=== PATIENT | male | born 1935 | race Caucasian/White ===

== ENCOUNTER 2017-01-14 19:28 | Inpatient (IN) | payer MEDICARE, OTHER ==
[2017-01-14] VITALS (7 sets, daily range): BP systolic 112–158; BP diastolic 58–87; PULSE 101–132; RESP 16–36; O2SAT 88–94
[~2017-01-14] VITALS: Ht 180.3 cm; Wt 97.4 kg
[~2017-01-14 19:28] MED LIST: CHOL500011 PO; KEN25CR EXT; METO50TA3 PO; PANT40TA2 PO; PRED-508 PO; SYMINH INHALATION; TIMO5DRO26 BOTH_EYES; TRAV5DRO BOTH_EYES; WARF5TAB7 PO; WARF7.5T4 PO
--- NOTE | 2017-01-14 19:52 | ED.REPORT ---
HPI-Dyspnea / Wheezing Date of Service Jan 14, 2017 ED Provider: Miguel Stanford MD Pt is an 82 year old male with a hx of lung surgery x2, tachycardia, pneumonia, and resolved kidney failure, on Warfarin presenting to the ED complaining of SOB and fatigue onset today around 1200. Associated symptoms include fever, weakness. The pt's pulse ox at home was in the upper 80s, BP was elevated, temperature was about 101. Pt reports feeling okay right now. The pt's reports that symptoms began while the pt was eating lunch. He became fatigued, and went home and went straight to sleep for the afternoon. Pt is not normally on Oxygen at home, he used to be but is not anymore. Denies being on antibiotics , lower extremity swelling or dysuria. Pt was ambulatory getting to the car to come in today, but his breathing did seem worse than baseline. Recent 20lb weight gain over the last few months. Denies any recent sick contacts. Nursing Notes Stated Complaint: TROUBLE BREATHING,FEVER Chief Complaint: Respiratory Distress Nursing Notes Reviewed: Yes (Unipower Battery, meds not reconciled) Allergies: Coded Allergies: codeine (Verified Adverse Reaction, Severe, FEELS LIKE BUGS CRAWLING ALL OVER, 06/25/16) Uncoded Allergies: plastic med cups (Allergy, Intermediate, swelling lips, 06/25/16) Scheduled Budesonide/Formoterol 160-4.5 mcg Inh (Symbicort 160-4.5 mcg Inh) 120 Puff Inhaler 2 PUFF INHALATION BID Cholecalciferol (Vitamin D3) (Vitamin D3) 5,000 Unit Tablet 5,000 UNIT PO DAILY Furosemide (Furosemide) 20 Mg Tab 20 MG PO BIDWM Metoprolol Tartrate (Metoprolol Tartrate) 50 Mg Tablet 50 MG PO BID Pantoprazole DR (Protonix) 40 Mg Tablet.dr 40 MG PO QAM PredniSONE (PredniSONE) 1 Mg Tab 5 MG PO DAILYWM Timolol (Betimol) 5 Ml Drops 1 DROP BOTH_EYES DAILY Travoprost (Travatan Z) 5 Ml Drops 1 DROP BOTH_EYES HS Triamcinolone Acet (Triamcinolone Acetonide Cream) 1 Applic/0.25 Gm Cr 1 APPLIC EXT BID Apply a thin layer to affected area(s) Warfarin Sodium (Warfarin Sodium) 5 Mg Tablet 5 MG PO DIRECTED 2.5 mg on (1/2 tablet), 5 mg all other days Scheduled PRN Acetaminophen (Acetaminophen) 325 Mg Tablet 650 MG PO Q4H PRN PRN For Fever General Time Seen by MD: 19:46 Chief Complaint Shortness of breath Hx Obtained From: Patient, Spouse Arrived By: Walk-in Sudden in Onset?: Yes Onset Occurred: 5 - 8 hours ago Symptom Duration: Since onset Severity: Current: No pain currently Severity: Maximum: No pain Recent Healthcare: No recent hospitalization, Recent doctor visit Similar Sx Previous: No Past Medical History Past Medical History Notes: Stress test pharmacological 10/31/2016 was normal, with preserved LV function, overall low risk Echocardiogram 10/31/2016 for shortness of breath revealed mild concentric left ventricular hypertrophy with EF of 60-65%, grade 1 diastolic dysfunction, mild biatrial enlargement, mild aortic valve sclerosis - no pericardial effusion on that follow-up Patient hospitalized last June 2016 for pericardial effusion status post pericardial window Admitted fall 2015 at [facility] Past Medical History Asbestosis Cataracts Glaucoma Abdominal aortic aneurism s/p repair/grafting of aorta & iliac 200607 Grade 1 diastolic CHF Hypertension Hyperlipidemia Atrial fibrillation - on Coumadin Mild Valvular heart disease Hx of pneumonia Hx of asbestos exposure Hx of polymyalgia rheumatica Hx of temporal arteritis (on chronic prednisone, currently at 5 mg daily as of December 2016) Hx of Cholelithiasis Chronic kidney disease, with congenital solitary kidney CAD Acute pericardial effusion requiring pericardial window in June 2016 Past Surgical History Pericardial window for pericardial effusion July 19 CAD cath Carotid endarterectomy Appendectomy Bilateral rotator cuff repair Thoracentesis Cataract surgery Thoracotomy Family History noncontributory Smoking History Former Smoker Social History Drug Use: Denies drug use Other Social History: Good social support, , Local resident Ambulatory Status Independent Review of Systems Constitutional: Reports: Fatigue, Fever (101), Malaise Respiratory: Reports: Shortness of breath Musculoskeletal: Denies: Extremity swelling Complete sys rev & neg: except as marked. Female: Denies: Dysuria Physical Exam Initial Vital Signs Vital Signs (First) Date Time Temp Pulse Resp B/P Pulse Ox O2 Delivery O2 Flow Rate FiO2 01/14/17 19:31 37.4 128 16 158/83 88 Room Air 01/14/17 20:34 3 Initial VS: Reviewed, Vital signs abnormal (tachycardic, hypoxic) Head / Eyes: Atraumatic, Normocephalic, PERRL ENT: Mucous membranes moist, Conjunctiva normal, No scleral icterus Abdomen / GI: Soft, Non-tender Skin: Warm, Dry, No cyanosis Neurologic: Alert, Oriented, Nonfocal Psychiatric: Mood/affect normal, Behavior normal, Normal thought content General/Constitutional: Awake, Alert Appears exhausted and weak. It takes effort just to sit up in bed. Respiratory / Chest: No respiratory distress Wheezing / Retractions: Positive: Wheeze insp/exp diffuse Rales / Rhonchi: Positive: Rales diffuse Wheezes and rhonchi all lovett. Cardiovascular: Regular rhythm Heart Rate / Rhythm: Positive: Tachycardia (Profoundly) Lower Extremity / Pelvis / MS: Atraumatic Trace edema although the pt reports that they are markedly better, and are at the best they've been for some time. Interpretation & Diagnostics Lab Results Interpretation Result Diagram: 01/14/17195301/14/171953 Test 01/14/17 19:54 White Blood Count 13.4th/mm3 (3.8-10.1) Red Blood Count 4.28mil/mm3 (4.40-5.80) Hemoglobin 12.9g/dL (13.8-17.2) Hematocrit 40.3% (41.0-50.0) Mean Corpuscular Volume 94.2fL (81-100) Mean Corpuscular Hemoglobin 30.1pg (27.0-35.0) Mean Corpuscular Hemoglobin Concent 32.0% (32.0-37.0) Red Cell Distribution Width 14.8% (12.3-15.4) Platelet Count 275bil/L (150-400) Neutrophils (%) (Auto) 84.1% (40-74) Lymphocytes (%) (Auto) 5.4% (14-46) Monocytes (%) (Auto) 10.0% (4-12) Eosinophils (%) (Auto) 0.2% (0-5) Basophils (%) (Auto) 0.1% (0-3) Prothrombin Time 16.5sec (8.1-12.5) Prothromb Time International Ratio 1.53ratio Sodium Level 141mEq/L (134-144) Potassium Level 4.1mEq/L (3.5-5.2) Chloride Level 104mEq/L (97-108) Carbon Dioxide Level 21mmol/L (18-29) Blood Urea Nitrogen 24mg/dL (8-27) Creatinine 2.14mg/dL (0.76-1.27) Estimat Glomerular Filtration Rate 32mL/min (>59) Glucose Level 127mg/dL (60-99) Lactic Acid Level 1.5mmol/L (0.4-2.0) Calcium Level 8.9mg/dL (8.5-10.1) Total Bilirubin 0.4mg/dL (0.0-1.2) Aspartate Amino Transf (AST/SGOT) 15U/L (0-50) Alanine Aminotransferase (ALT/SGPT) 10U/L (0-44) Alkaline Phosphatase 63U/L (25-160) Troponin T 0.019ug/L (0.0-0.011) Pro-B-Type Natriuretic Peptide 1298pg/mL (0-486) Total Protein 6.8g/dL (6.4-8.4) Albumin 3.6g/dL (3.4-5.0) Procalcitonin 0.24ng/mL (0.00-0.08) Lab Results Interpretation: CBC positive leukocytosis CMP renal insufficiency chronic-improved from a creatinine of 4 and June 2016 Blood cultures 2 pending Troponin marginally positive, suspect demand ischemia given setting fever, respiratory infection, also chronic renal insufficiency INR subtherapeutic ECG Interpretation ECG Interpretation: Sinus tachycardia with a rate of 123. No ischemic changes. Can't exclude atrial flutter, given that previous EKG indicates hx of flutter. Time: 19:56 Interpreted by: ED physician X-Ray Chest Interpretation Chest Xray Interpretation: IMPRESSION: Overall unchanged appearance including bibasilar ill-defined patchy ground glass opacities probably scarring/atelectasis given stable appearance since 01/02/17 and to a more remote study from 09/10/16 Dictated by: Leeroy Lin M.D. on 01/14/2017 at 20:47 View: Portable, 1 view Interpretation / Wet Read by: Interpret - Radiologist Re-Eval/Medical Decision Med Decision/Clinical Course This is an 82-year-old male with a complex history that includes asbestosis, presents with fevers chills and shortness of breath and weakness. Noted today. He has a chronic cough making it difficult to tell if there is a new cough- this is from his asbestosis and he is on inhalers at baseline. 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 In generally weak, but is able to answer questions. He has decreased breath sounds, no audible bronchospasm on exam. He has trace edema in the legs In the legs which is chronic and improved from baseline according to the patient and . Patient is on chronic prednisone at 5 mg daily for history of temporal arteritis. He received albuterol Atrovent, Tylenol, fluids, and a Solu-Medrol given the history of chronic steroids bronchospasm as part of his presentation. To my ice his chest x-ray does suggest an interval development of pneumonia compared with previous, although the formal radiologist read does not appreciate an interval change. The patient has already been admitted within the past few months for an influenza positive, think unlikely to have influenza twice in a matter of months and not finding too much utility in repeating influenza test at this time. The patient is slightly subtherapeutic on his INR, it does not have pleuritic discomfort and I doubt pulmonary embolus. Infectious etiology with the fevers chills and weakness and describes seems much more likely better fits with the clinical syndrome. Patient will maintain on anticoagulation however, he is being initiated on antibiotics. He has a low level troponin elevation which I suspect is most likely due to the chronic renal insufficiency, and/or potentially some trace demand ischemia-the patient just underwent an extensive cardiac workup that was negative in the recent months. Creatinine is significantly improved from the renal failure developed in June 2016, and appears to be the baseline to this point. Case is discussed the admitting hospitalist. Source of Hx: Old records Re-Evaluation/Progress : Time of Eval: 20:02 Patient Status: Condition improved Re-Evaluation/Progress Note: Discussed medication list. Consultation : Referral / Consult Name: Jeanmarie Ha MD Consulted With: Hospitalist Call Returned at: 21:03 Cytology Manager: Will see patient, Agrees with plan, Accepts admit Differential Diagnosis: Positive: COPD exacerbation, Pneumonia, Negative: Acute coronary syndrome, Cardiogenic shock, Pulmonary embolism, Respiratory failure Counseled Regarding: Diagnosis, Lab results, Need for follow-up, When/why to return to ED Discharge & Departure Impression: Primary Impression: Pneumonia Additional Impressions: Acute exacerbation of COPD with asthma Hypoxia Subtherapeutic international normalized ratio (INR) Chronic renal insufficiency Chronic use of steroids Disposition: ADMITTED TO HOSPITAL Discharge Condition All VS Reviewed: Yes Condition: Improved Referrals: Nuno Stanton MD (PCP/Family) Stacey Attestation Portions of this note were transcribed by Leticia West. I, Dr. Stanford personally performed the history, physical exam and medical decision-making; I reviewed and confirmed the accuracy of the information in the transcribed note. Signed by: Stacey Prado, 01/14/2017 and 2103. copies to: Nuno Stanton MD, Matthew F MD Jan 14, 2017 19:52 LETICIA WEST Jan 14, 2017 20:08
[2017-01-14] MEDS ORDERED: Albuterol 2.5 mg/3 mL Inhalation Solution NEB ONE ×2 (20:04→20:05)
[2017-01-14 20:05] LABS: BASOPHILS % (AUTO) 0.1 % (0-3); EOSINOPHILS % (AUTO) 0.2 % (0-5); Mean Corpuscular Hemoglobin 30.1 pg (27.0-35.0); Mean Corpuscular Volume 94.2 fL (81-100); NEUTROPHILS % (AUTO) 84.1 % (40-74); Platelet Count 275 bil/L (150-400)
[2017-01-14] MEDS ORDERED: MethylprednisoLONE Sodium Succinate 62.5 mg/mL 2 mL Inj IVPUSH ONE (20:05)
[2017-01-14] MEDS ORDERED: Ipratropium 0.02% 0.5 mg/2.5 mL Inhalation Solution NEB ONE (20:05)
[2017-01-14 20:21] LABS: INR 1.53 ratio
[2017-01-14] MEDS ORDERED: PRD1T PO (20:29)
[2017-01-14] MEDS ORDERED: TIMO5DRO26 BOTH_EYES (20:34)
[2017-01-14] MEDS ORDERED: TIMO5DRO5 BOTH_EYES (20:34)
[2017-01-14 20:35] LABS: TROPONIN T 0.019 ug/L (0.0-0.011)
[2017-01-14] MEDS ORDERED: FUR20 PO (20:37)
[2017-01-14] MEDS ORDERED: ACET325T51 PO (20:39)
[2017-01-14] MEDS ORDERED: Azithromycin Inj 500 MG in Dextrose 5% w/Vial Mate 250 ML IV ONE (20:45)
[2017-01-14] MEDS ORDERED: cefTRIAXone Inj 2,000 MG in Dextrose 5% Minibag Plus 50 ML IV ONE (20:45)
--- NOTE | 2017-01-14 20:50 | DRSVH ---
PROCEDURE: X-RAY CHEST ONE VIEW, PORTABLE ([id number]) INDICATIONS: Shortness of breath TECHNIQUE: One view of the chest was acquired. COMPARISON: [facility], CR, XR CHEST 2VW, 09/10/2016, 13:06. [facility], CR, XR CHEST 2VW, 01/02/2017, 11:19. FINDINGS: Surgical changes and devices: Surgical clips project in the right neck Lungs and pleura: No definite pleural effusions or pneumothorax. Bibasilar ill-defined patchy and gr oundglass opacities overall unchanged since 01/02/17. No new consolidation. Mediastinum: Mediastinal contours appear normal. Heart size is normal. Bones and chest wall: No suspicious bony lesions. Overlying soft tissues appear unremarkable. IMPRESSION: Overall unchanged appearance including bibasilar ill-defined patchy ground glass opacitie s probably scarring/atelectasis given stable appearance since 01/02/17 and to a more remote study from 09/10/16 Dictated by: Leeroy Lin M.D. on 01/14/2017 at 20:47 Approved by: Leeroy Lin M.D. on 01/14/2017 at 20:49
[2017-01-14 21:32] LABS: COLOR,URINE YELLOW (YELLOW)
[2017-01-14 21:33] LABS: APPEARANCE,URINE CLEAR (CLEAR,HAZY); OCCULT BLOOD,URINE MODERATE (NEGATIVE); UROBILINOGEN,URINE NORMAL (NORMAL)
[2017-01-14] MEDS ORDERED: Polyethylene Glycol (PEG) 17 Gm Powder PO PRN (22:40)
[2017-01-14] MEDS ORDERED: Albuterol-Ipratropium 3 mL Inhalation Solution NEB PRN (23:10)
--- NOTE | 2017-01-14 23:26 | PCM.HPMED ---
Subjective Date of Service Jan 14, 2017 Primary Provider: Admitting Physician: Jeanmarie Ha MD Primary Care Physician: Nuno Stanton MD Attending Physician: Jeanmarie Ha MD Chief Complaint: Shortness of breath and fever History of Present Illness: 82-year-old male with a complicated past medical history including significant asbestos exposure with recurrent right pleural effusion status post VATS, and chronic steroids for vasculitis who presented to the ER this evening with one- day complaint of increased fatigue and loss of appetite with associated shortness of breath that became more of an issue at approximately noon today, and at least one recorded fever of 10 1F. A significant portion of the history is obtained from the patient's was present. Reports that he awoke this morning, ate a little bit of breakfast, and then went back to bed. At approximately noon they were on their way to see friends for lunch, but he reported he was not feeling well, and they went back home. His reports that he then just went back to bed and slept for most of the afternoon. He reports some shortness of breath, and they report that the O2 sats was reading a saturation in the 80s. Please note, that the patient was previously on home O2 (until about 8 months ago), but no longer. He reports that he somewhat regularly gets short of breath, and this is usually associated with increased cough and sputum production secondary to his significant asbestos exposure and complications subsequent to that. They presented to the ER due to the significant shortness of breath and hypoxia. Denies sick contacts, recent travel. He otherwise denies any other complaints at this time. Over the course of the interview was noted that his left lower leg has a greater circumference than the right lower leg, and upon questioning this was noted to be abnormal appearing into the and the patient. They cannot recall if this is a chronic issue (though they note that he does have fluid retention chronically), and are not aware of any physician telling him before that he has this asymmetry. He denies pain in the leg, and denies any significant period of time at which he was immobile over the last several weeks. Please note, patient's says that he previously had cellulitis in the left lower extremity, but I am not able to find any records confirming that. Patient and spouse report significant weight increase over the last couple of months (upon review of outpatient record it appears to be approximately 20 pounds), but he reports that it has "all gone to my belly." Review of outpatient records demonstrates report of disease stability across the board per nephrology, pulmonology, and internal medicine records. In the ER, he was tachycardic and tachypneic, but afebrile. The chest x-ray did not demonstrate significant change from previous studies (i.e. new infiltrate). He did receive nebulizer treatments with albuterol and ipratropium. He also received a one-time dose of IV Solu-Medrol (125 mg). At the time I saw him, patient was reporting that he feels back to baseline. Given his fever and shortness of breath, he received one-time doses of ceftriaxone and azithromycin in the ER. Patient is admitted under inpatient status with expected length of stay greater than 2 midnights due to severity of presenting symptoms, risk of adverse event, and complexity of treatment plan. Comprehensive review of systems conducted and was negative except for the pertinent positives listed in history of present illness above. Allergies Coded Allergies: codeine (Verified Adverse Reaction, Severe, FEELS LIKE BUGS CRAWLING ALL OVER, 06/25/16) Uncoded Allergies: plastic med cups (Allergy, Intermediate, swelling lips, 06/25/16) Home Medications Naga Aldrich. [id number] 1935 01/02/2017 10:30 AM 11/28 Betimol 0.5 % eye drops instill 1 drop by ophthalmic route 2 times every day into affected eye(s) clobetasol 0.05 % scalp solution MIX INTO TUB OF CERAVE AND APPLY TO AFFECTED AREAS twice a day for 2 wks then 2-3 times a week. Do not apply to face fluticasone 50 mcg/actuation nasal spray,suspension spray 1 spray by intranasal route every day in each nostril furosemide 20 mg tablet take 1 tablet by oral route every 2 days Jantoven 5 mg tablet take 1 tablet (5mg) daily except 1/2 tablet (2.5mg) Thurs metoprolol tartrate 50 mg tablet TAKE 1 TABLET BY MOUTH TWICE A DAY WITH MEALS FOR HEART PROAIR HFA 90 MCG INHALER INHALE 2 PUFFS BY MOUTH 4TIMES A DAY NEEDED PROTONIX DR 40 MG TABLET TAKE 1 TABLET BY ORAL ROUTE EVERY DAY ON EMPTY STOMACH FOR ACID REFLUX. 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 MARISSA Chinchilla * Membranous glomerulonephritis with associated proteinuria (history of Cytoxan which was completed in May 2016) * Chronic anion gap metabolic acidosis PMR on prednisone Giant cell arteritis on prednisone CVA/TIA 2007 Asbestosis status post right thoracostomy with talc treatment (VATS decortication in 2014) Osteoarthritis Pericardial effusion status post pericardial window Glaucoma of the left eye GERD Appendectomy Knee surgery for torn meniscus Tonsillectomy Bilateral rotator cuff surgery Family History His father committed suicide with shooting himself. His mother had kidney disease. 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 Exam Vital Signs Vital Sign - Last Date Time Temp Pulse Resp B/P Pulse Ox O2 Delivery O2 Flow Rate FiO2 01/14/17 21:47 37.2 114 30 112/87 94 Nasal Cannula 2 Exam General: Alert, Oriented X3, Cooperative, No Acute Distress Head: Normocephalic, atraumatic. External ears normal. Eyes: PERRL (please note that the left pupil is slow to react-this is the eye in which he has glaucoma), EOMI. Anicteric sclerae. Conjunctivae are not injected Mouth: Mouth Normal, Mucous Membranes Moist/[place]. Upper and lower dentures present Neck: Neck supple with full range of motion. No Thyromegaly. Please note scar from right-sided CEA. Chest & Lungs: Bibasilar rales present. There is significant upper airway sound transmission from secretions that appropriately resolves with coughing/ clearing his throat. Respiratory effort is shallow with a rate in the low 20s, but upon questioning his she notes that this is about how he usually breathes. Cardiovascular: Regular Rate/Rhythm, Normal S1, Normal S2, No Murmurs/Rubs/ Gallops. Radial pulses are 2+ bilaterally. Posterior tibials are difficult to appreciate but faint bilaterally. No carotid bruits appreciated. Abdomen: Non-tender, Non-distended, No masses, Normoactive bowel tones, Soft. Please note significant vertical surgical scar (secondary to his AAA repair). Musculoskeletal: Normal Range of Motion Extremities: Circumferential asymmetry of the lower legs (left is greater than right). There is some dependent mild pitting edema in the lower legs bilaterally, and minimal pitting edema in the bilateral feet. There is some very mild hyperpigmentation of the distal lower legs to the ankles, but no erythema, warmth, tenderness on palpation. Skin: Warm and diaphoretic. No rash appreciated. Neurological: Grossly Neurologically Intact, Cranial Nerves 2-12 Intact, Normal Speech Psych: Normal mood and affect. Thought process and content intact. Lab and Diagnostics Labs Neutrophilia with 84.1% Lactic acid is 1.5 LFTs are normal Troponin is mildly elevated 0.019 (patient does have chronic kidney disease) The proBNP is 1300 (patient does have chronic kidney disease) Pro calcitonin is 0.24 Total protein and albumin are normal INR is 1.53 (please note that it was 3.6 on 01/02/17)-patient is on warfarin UA demonstrates 300 of urine protein, 250 of urine glucose, moderate occult blood, 3-10 red blood cells, but otherwise unremarkable Result Diagram: 01/14/17195301/14/171953 Microbiology Blood cultures this admission are pending. Review of micro-history is unremarkable. X-Rays, CTs and MRIs Date of Service: 01/14/171947 PROCEDURE: X-RAY CHEST ONE VIEW, PORTABLE ([id number]) IMPRESSION: Overall unchanged appearance including bibasilar ill-defined patchy ground glass opacities probably scarring/atelectasis given stable appearance since 01/02/17 and to a more remote study from 09/10/16 Dictated by: Leeroy Lin M.D. on 01/14/2017 at 20:47 12-lead ECG Sinus tachycardia with a heart rate of 123, intervals are within normal limits, axis is normal, no ST or T-wave changes to suggest acute ischemia at this time. Cardiac Echo Impressions Echocardiogram performed 10/31/16 demonstrates an estimated EF of 60-65% with mild concentric LV hypertrophy. There is also note of grade 1 diastolic dysfunction. Otherwise no significant disease noted. Assessment & Plan 82-year-old male with a complicated past medical history including significant asbestos exposure with recurrent right pleural effusion status post VATS, and chronic steroids for vasculitis who presented to the ER this evening with one- day complaint of increased fatigue and loss of appetite with associated shortness of breath that became more of an issue at approximately noon today, and at least one recorded fever of 101F. # Shortness of breath and hypoxia with associated fever, acute. Shortness of breath present on admission -Unclear etiology at this time -Given his lower leg asymmetry and swelling, there is some concern for possible thromboembolic disease which could potentially lead to a PE * Please note, well score is 4.5 (S/S of DVT and tachycardia) * Please note subtherapeutic range INR (with recent supratherapeutic INR) -Given his fever and productive cough (history of asbestos exposure), there is additional concern for a potential community-acquired bacterial or viral pulmonary infection -Alternatively, this could be an exacerbation of his underlying chronic pulmonary disease (potential precipitants could include infection, VTE, but no definitive precipitants noted by patient) -Patient does have underlying vasculitic disease, but no other clinical indications that a vasculitic exacerbation is contributing to his presentation -No indication of cardiac ischemia etiology, or return of pleural effusion by imaging, or acute heart failure -Patient does not appear to be significantly fluid overloaded on clinical assessment to suggest that as an etiology -We will begin assessment with ultrasound duplex of the lower extremities (will hold off on CT PE study as the patient reports doing well, and his underlying chronic kidney disease * If lower extremity ultrasound duplex is positive for DVT, then we will consider CT PE study -For tonight we will empirically treat for possible community-acquired bacterial pneumonia with ceftriaxone and azithromycin. Please note, patient is on chronic prednisone (5 mg by mouth daily). * Reports that he had his flu vaccination this year, and is up-to-date with pneumococcal vaccinations. * We will check legionella and pneumococcal urine antigens * check sputum cx * As the patient has improved significantly with nebulizer treatments, we may be able to stop these antibiotics in the near future * Should the patient worsen or fail to improve, consideration for biofire PCR for respiratory etiology (potentially viral) -We will make nebulized treatments available on as-needed basis -Oxygen supplementation as needed to keep sats greater than 92% -Repeat pro calcitonin in the morning -Continue to monitor labs and vital signs closely -Stress dose steroids (will order prednisone 20 mg by mouth to be given tomorrow morning) -Daily standing weights and close monitoring of I's and O's given his report of weight gain over the last several months # Leukocytosis with left shift, acute. Present on admission -Likely secondary to possible infection, or stress reaction as noted above -Unlikely to be due to his chronic steroids as review of historical lab values does not demonstrate leukocytosis -We will continue to follow labs, but please note that he is now getting stress dose steroids # Subtherapeutic INR, acute. 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-we will continue home furosemide (please note this is dosed every other day) * Membranous glomerulonephritis with associated proteinuria * Chronic anion gap metabolic acidosis PMR-steroids as noted above Giant cell arteritis-steroids as noted above Asbestosis status post right thoracostomy with talc treatment-we will continue Symbicort Osteoarthritis-Tylenol is available as needed Glaucoma of the left eye-we will continue Travatan eyedrops GERD-we will continue PPI PRN MEDICATIONS - Acetaminophen as needed for mild pain/fever/headache - Bowel regimen as needed - Antiemetic as needed Patient is admitted under inpatient status with expected length of stay greater than 2 midnights due to severity of presenting symptoms, risk of adverse event, and complexity of treatment plan. Pain Evaluation: Adequate Pain Control GI Prophylaxis: Proton Pump Inhibitor VTE Prophylaxis: Sub-Q Heparin (Unfractionated), Other (we will continue with warfarin with goal of therapeutic INR, will have him on DVT ppx with subq Heparin until therapeutic. IPC contraindicated given concern for DVT) Resuscitation Status: DNR/DNI:Do Not Resuscitate/Intubate Attending Statement The patient was seen and examined together with Dr. Lindsey on 01/14 and I agree with the history, exam and plan as outlined in the note above. copies to: Nuno Stanton MD, Collin T DO Jan 14, 2017 22:09 Jeanmarie Ha MD Jan 14, 2017 23:56
[2017-01-15] VITALS (8 sets, daily range): BP systolic 131–181; BP diastolic 62–96; PULSE 84–98; RESP 18–24; O2SAT 93–99
[2017-01-15] MEDS ORDERED: TRAVOPROST 0.004% BOTH_EYES ONE (00:05)
[2017-01-15 02:38] LABS: BASOPHILS % (AUTO) 0.2 % (0-3); EOSINOPHILS % (AUTO) 0 % (0-5); MONOCYTES % (AUTO) 1.5 % (4-12); Mean Corpuscular Hemoglobin 29.8 pg (27.0-35.0); Mean Corpuscular Volume 96.1 fL (81-100); NEUTROPHILS % (AUTO) 95.8 % (40-74); Platelet Count 257 bil/L (150-400)
[2017-01-15 02:55] LABS: INR 1.53 ratio
[2017-01-15 03:18] LABS: Magnesium 2.1 mg/dL (1.6-2.6)
[2017-01-15] MEDS: Heparin 5,000 Unit/mL Inj SUBQ SCH ×4 (03:40→23:40)
[2017-01-15] MEDS ORDERED: 0.9% Sodium Chloride 250 ML IV ONE (04:45)
--- NOTE | 2017-01-15 04:48 | NUR ---
Admit Pt arrived to [facility] from ED via gurney. Pt was able to self transfer to bed with SBA. Pt A&Ox3 with no c/o of CP or SOB. Med rec completed in ED, Admission questions completed in room with and pt answering. Pt orient to room, call light and hospital policies. Pt on 3L NC with SpO2's in the high 90's. Pt AM lactic found to be elevated along with procalcitonin. MD notified and orders for NS 250mL bolus and NS 500mL to run at 100 mL/hr were given and started, repeat Lactic @ 0600. VSS and Tele SR 90's.
[2017-01-15] MEDS: 0.9% Sodium Chloride 500 ML IV SCH ×3 (05:30→14:21)
[2017-01-15] MEDS: Pantoprazole 40 mg ER24 Tablet PO SCH (08:14)
[2017-01-15] MEDS: predniSONE 20 mg Tablet PO SCH (08:14)
[2017-01-15] MEDS: Fluticasone-Salmeterol 500-50 Inhaler INHALATION SCH ×2 (08:14→21:18)
[2017-01-15] MEDS ORDERED: TIMO1DRO4 AFFECT_EYE (09:48)
--- NOTE | 2017-01-15 09:54 | DRSVH ---
PROCEDURE: US VENOUS LEG DUPLEX BILATERAL INDICATIONS: L lower leg is greater than R, SOB TECHNIQUE: Real-time imaging, as well as color and pulse Doppler interrogation, were performed of the deep veins of both legs from the inguinal ligament to the popliteal fossa. COMPARISON: None. FINDINGS: The deep veins are normally compressible, and free of intraluminal thrombus. Color and pu lse Doppler demonstrate normal phasic intravascular flow. There is normal augmentation response to d istal compression maneuver. IMPRESSION: No DVT found bilaterally. Note: These findings are concordant with the preliminary interpretation. Dictated by: Daniel Landis M.D. on 01/15/2017 at 9:43 Approved by: Daniel Landis M.D. on 01/15/2017 at 9:44
--- NOTE | 2017-01-15 14:47 | PCM.PHAPRO ---
Progress Shortness of breath and fever WARFARIN Dosing Indication: AFIB Home dose 5mg/d x 2.5mg on [facility] Inpt dosing: [facility] Date Jan 15Jan 16Jan 17Jan 18Jan 19Jan 20Jan 21 INR 1.53 1.53 INR change Warf Dose 7.5mg x1 a/ Subtherapeutic, likely 2/2 missed dose(s) p/ Bump dose of 7.5mg x1 today and follow Nathan Carpio S Pharm D Jan 15, 2017 14:47
--- NOTE | 2017-01-15 16:27 | PCM.PNMED ---
Subjective Date of Service Jan 15, 2017 Subjective 82-year-old man with a history of fibrotic and pleural lung disease presents with acute fever and cough. Patient states he felt remarkably better within 12 hours hospitalization. Continues to have increased cough. No further fevers. Reports appetite is somewhat reduced. Exam Vital Signs Vital Sign - Last Date Time Temp Pulse Resp B/P Pulse Ox O2 Delivery O2 Flow Rate FiO2 01/15/17 16:09 36.8 98 20 144/75 93 Room Air 01/15/17 12:02 3.00 Intake and Output 01/14/17 01/14/17 01/15/17 Cumulative From/Thru 15:00 23:00 07:00 01/14/17 19:31 - 01/15/17 05:08 Intake Total 250 ml 0 ml 250 ml Output Total 250 ml 250 ml Balance 250 ml -250 ml 0 ml Intake Oral 0 ml 0 ml IV Total 250 ml 250 ml Output Urine Total 250 ml 250 ml # Bowel Movements 0 0 Exam General: Early healthy appearing elderly man in no acute distress HEENT: sclerae anicteric, oral mucosa moist Neck: no JVD Chest: Coarse inspiratory crackles bilaterally, somewhat increased at right base , no dullness, tubular breath sounds right central area, no egophony Cardiac: S1S2, no murmur Abdomen: BS normal, non-tender Extremities: No edema Neuro: A&O, cranial nerves symmetric, motor strength 5/5, coordination normal IVs and Medications Medications Reviewed: Medications were reviewed in detail Lab and Diagnostics Result Diagram: 01/15/17 0220 01/15/17 0220 Microbiology Blood cultures this admission are pending. Review of micro-history is unremarkable. X-Rays, CTs and MRIs Date of Service: 01/14/171947 PROCEDURE: X-RAY CHEST ONE VIEW, PORTABLE ([id number]) IMPRESSION: Overall unchanged appearance including bibasilar ill-defined patchy ground glass opacities probably scarring/atelectasis given stable appearance since 01/02/17 and to a more remote study from 09/10/16 Dictated by: Leeroy Lin M.D. on 01/14/2017 at 20:47 12-lead ECG Sinus tachycardia with a heart rate of 123, intervals are within normal limits, axis is normal, no ST or T-wave changes to suggest acute ischemia at this time. Cardiac Echo Impressions Echocardiogram performed 10/31/16 demonstrates an estimated EF of 60-65% with mild concentric LV hypertrophy. There is also note of grade 1 diastolic dysfunction. Otherwise no significant disease noted. Assessment & Plan 82-year-old male with a complicated past medical history including significant asbestos exposure with recurrent right pleural effusion status post VATS, and chronic steroids for vasculitis who presented to the ER this evening with one- day complaint of increased fatigue and loss of appetite with associated shortness of breath that became more of an issue at approximately noon today, and at least one recorded fever of 101F. # Shortness of breath and hypoxia with associated fever, acute. Shortness of breath present on admission. Symptomatically improved within 24 hours. Cough is increased but he has baseline productive cough. No clear infiltrate but chest x-ray is abnormal at baseline. Clinical symptoms suggest lower respiratory infection either viral or bacterial. - Continue ceftriaxone and azithromycin for possible community acquired pneumonia - Respiratory viral PCR pending # SIRS. Heart rate on admission 128, Leukocytosis 13.4 left shift, acute. Probable respiratory infection but patient not clinically septic. - Push by mouth hydration - Resolved # Subtherapeutic INR, acute. Present on admission - Warfarin adjustment to achieve therapeutic range (2-3) # Chronic kidney disease. Congenital unilateral kidney, membranous glomerulonephropathy. Baseline serum creatinine 2-2.5. - No evidence of AK I. 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-steroids as noted above Giant cell arteritis-steroids as noted above Asbestosis status post right thoracostomy with talc treatment-we will continue Symbicort Osteoarthritis-Tylenol is available as needed Glaucoma of the left eye-we will continue Travatan eyedrops GERD-we will continue PPI Patient is admitted under inpatient status with expected length of stay greater than 2 midnights due to severity of presenting symptoms, risk of adverse event, and complexity of treatment plan. GI Prophylaxis: Proton Pump Inhibitor VTE Prophylaxis: Sub-Q Heparin (Unfractionated), Other Resuscitation Status: DNR/DNI:Do Not Resuscitate/Intubate Time spent 35 minutes Feliz Matthews MD Jan 15, 2017 16:27
--- NOTE | 2017-01-15 18:43 | NUR ---
V-tach/O2 Pt had 15 beats of V-tach at beginning of shift, Pt asymptomatic, MD made aware. Pt on 3L via nasal cannula with SPO2 sats in the upper 90s, denied SOB, O2 removed, SPO2 sats 93-95% on RA, Pt denied SOB on RA. Pt ambulated in hallways with oximeter on, lowest SPO2 sat 89%, Pt denied SOB with ambulation.
[2017-01-15] MEDS ORDERED: cefTRIAXone Inj 2,000 MG in Dextrose 5% Minibag Plus 50 ML IV SCH (20:30)
[2017-01-15] MEDS: Timolol 0.5% 5 mL Ophthalmic Solution BOTH_EYES SCH (20:59)
[2017-01-15] MEDS ORDERED: TRAVOPROST 0.004% BOTH_EYES SCH (21:00)
[2017-01-15] MEDS ORDERED: 0.9% Sodium Chloride 250 ML ONE (21:07)
[2017-01-16 02:45] VITALS: BP 201/96; PULSE 82; RESP 20; O2SAT 96
[2017-01-16 03:17] LABS: INR 1.34 ratio
[2017-01-16 05:46] VITALS: PULSE 96
--- NOTE | 2017-01-16 06:18 | NUR ---
Activity/Cardiac Pt ambulated in hallway x2 this shift with no c/o of SOB or dizziness, SBA with FWW and strong steady gait. Pt had increasing BP during the shift 201/96. MD notified and 25mg Hydralazine po ordered and effective, 148/87. VSS and Tele SR.
[2017-01-16 08:00] VITALS: PULSE 93
[2017-01-16 08:14] VITALS: BP 159/93; PULSE 79; RESP 20; O2SAT 95
[2017-01-16 08:19] LABS: Mean Corpuscular Hemoglobin 29.7 pg (27.0-35.0); Mean Corpuscular Volume 96.6 fL (81-100)
[2017-01-16] MEDS: Fluticasone-Salmeterol 500-50 Inhaler INHALATION SCH (08:20)
[2017-01-16] MEDS: Heparin 5,000 Unit/mL Inj SUBQ SCH (08:21)
[2017-01-16] MEDS: Timolol 0.5% 5 mL Ophthalmic Solution BOTH_EYES SCH (08:21)
[2017-01-16] MEDS: Pantoprazole 40 mg ER24 Tablet PO SCH (08:21)
[2017-01-16] MEDS: predniSONE 20 mg Tablet PO SCH (08:22)
--- NOTE | 2017-01-16 11:17 | DRSVH ---
PROCEDURE: X-RAY CHEST, TWO VIEWS ([id number]) INDICATIONS: 82-year-old male with pneumonia. TECHNIQUE: 2 views of the chest were acquired. COMPARISON: [facility], CR, XR CHEST 1VW (PORTABLE), 01/14/2017, 20:11. [facility], CR, XR CHEST 2VW, 01/02/2017, 11:19. [facility], CR, XR CHEST 2VW, 09/10/2016, 13:06. FINDINGS: Surgical changes and devices: Right neck surgical clips are again noted, presumably from thyroid surg good. Lungs and pleura: No pleural effusions or pneumothorax. Scattered bibasilar linear scarring and/or a telectasis is present, without acute airspace opacities. Mediastinum: Mediastinal contours are normal. Heart size is normal. There is aortic atherosclerosi s. Bones and chest wall: No suspicious bony abnormalities. Several nonacute right rib fractures are ag ain noted. Soft tissues appear unremarkable. IMPRESSION: Scattered bibasilar linear scarring and/or atelectasis, without radiographic evidence for pneumonia. Dictated by: Dhruv Becerra M.D. on 01/16/2017 at 11:09 Approved by: Dhruv Becerra M.D. on 01/16/2017 at 11:11
--- NOTE | 2017-01-16 12:04 | PCM.DIMED ---
Discharge Instructions Date of Service Jan 16, 2017 Dates of Hospitalization Jan 14, 2017 at 21:23 Discharge Diagnosis Discharge Diagnosis Hypoxia; bronchitis Medication Instructions No medications have been changed on this admission. We suggest that you try an expectorant cough syrup (such as Robitussin AC with guaifenesin) to loosen secretions. This is available [id number]. You do not need antibiotics as there is no sign of pneumonia. Diet No restrictions Activity No restrictions Patient Instructions Your low oxygen level was either due to bronchitis or possibly plugging of mucus. If you have further episodes of shortness of breath or low oxygen level you should return to the emergency department for evaluation. Follow-up plan Contact Dr. Stanton for a post-hospitalization follow-up appointment if needed. If your breathing remains normal, and you have no other health concerns, then you may see Dr. Stanton at your next scheduled visit. Follow-up Provider: Nuno Stanton MD Follow-up with PCP in: 1 week Feliz Matthews MD Jan 16, 2017 12:04
--- NOTE | 2017-01-16 13:42 | NUR ---
Social Work: Initial Assessment D: Per EMR review, pt is an 82 year old male admitted for pneumonia. Pt is Medicare with [employer] Supplement. PCP is Nuno Stanton MD. NOK Is Dalila Aldrich, , . Advanced directives completed and on file. Readmit score is moderate, 4/8. HEAD KILN OPERATOR met with pt at bedside. Sw role and contact information provided. See initial assessment. Pt lives in [place] with his spouse. Pt is [place] with [place]. Pt owns a cane but does not need this. Pt continues to drive and lives in a single story home. Pt has never had HH or Skilled rehab. Pt states he has no concerns about discharge home. No needs identified at this time. HEAD KILN OPERATOR staffed with who agrees with plan for d/c home when ready. A: pt who is I at baseline. P: Anticipate pt to discharge home via POV once medically stable; HEAD KILN OPERATOR to continue to follow. ALEXA Ding Addendum: 01/16/17 at 1350 by KALYN GALICIA Amended: Links added.
--- NOTE | 2017-01-16 15:09 | NUR ---
Discharge Pt eager to discharge. Pt discharged to home with family at ~1400 after ambulating in the hallway for one lap on RA, Pt denied SOB/dizziness during walk. Pt given discharge educational materials on pneumonia. Pt's IV access D/C'd and intact. Pt instructed to f/u with PCP, appointment made with Dr. Stanton 01/28/17 at 1100. Pt and at bedside verbalized understanding of all discharge instructions. All belongings accompanied Pt at time of discharge.
--- NOTE | 2017-01-16 19:40 | PCM.DC.MED ---
Discharge Summary Date of Service Jan 16, 2017 Dates of Hospitalization Date of Hospital Admission Jan 14, 2017 at 21:23 Date of Discharge: Jan 16, 2017 Providers: Admitting Physician: Jeanmarie Ha MD Primary Care Physician: Nuno Stanton MD Attending Physician: Jeanmarie Ha MD Diagnosis at Time of Discharge Diagnosis at Time of Discharge Hypoxia; bronchitis Procedures XRay, CTs & MRIs Date of Service: 01/14/171947 PROCEDURE: X-RAY CHEST ONE VIEW, PORTABLE ([id number]) IMPRESSION: Overall unchanged appearance including bibasilar ill-defined patchy ground glass opacities probably scarring/atelectasis given stable appearance since 01/02/17 and to a more remote study from 09/10/16 Dictated by: Leeroy Lin M.D. on 01/14/2017 at 20:47 ECG 12 Lead Sinus tachycardia with a heart rate of 123, intervals are within normal limits, axis is normal, no ST or T-wave changes to suggest acute ischemia at this time. Cardiac Echo Impression Echocardiogram performed 10/31/16 demonstrates an estimated EF of 60-65% with mild concentric LV hypertrophy. There is also note of grade 1 diastolic dysfunction. Otherwise no significant disease noted. Brief History History of Present Illness (per admission note): 82-year-old male with a complicated past medical history including significant asbestos exposure with recurrent right pleural effusion status post VATS, and chronic steroids for vasculitis who presented to the ER this evening with one- day complaint of increased fatigue and loss of appetite with associated shortness of breath that became more of an issue at approximately noon today, and at least one recorded fever of 10 1F. A significant portion of the history is obtained from the patient's was present. Reports that he awoke this morning, ate a little bit of breakfast, and then went back to bed. At approximately noon they were on their way to see friends for lunch, but he reported he was not feeling well, and they went back home. His reports that he then just went back to bed and slept for most of the afternoon. He reports some shortness of breath, and they report that the O2 sats was reading a saturation in the 80s. Please note, that the patient was previously on home O2 (until about 8 months ago), but no longer. He reports that he somewhat regularly gets short of breath, and this is usually associated with increased cough and sputum production secondary to his significant asbestos exposure and complications subsequent to that. They presented to the ER due to the significant shortness of breath and hypoxia. Denies sick contacts, recent travel. He otherwise denies any other complaints at this time. In the ER, he was tachycardic and tachypneic, but afebrile. The chest x-ray did not demonstrate significant change from previous studies (i.e. new infiltrate). He did receive nebulizer treatments with albuterol and ipratropium. He also received a one-time dose of IV Solu-Medrol (125 mg). At the time I saw him, patient was reporting that he feels back to baseline. Given his fever and shortness of breath, he received one-time doses of ceftriaxone and azithromycin in the ER. . Hospital Course # Shortness of breath and hypoxia. Shortness of breath present on admission. Symptomatically improved within 6 hours. Cough is baseline productive cough. No new infiltrate, but chest x-ray is abnormal at baseline. He received ceftriaxone and azithromycin for possible community acquired pneumonia, but this was discontinued after 2 doses. His rapid improvement and lack of fever are most suggestive of a transient mucus plugging episodes. Ultimately he may have a bronchitis, although he is very clear that his cough is at baseline. Respiratory viral PCR was negative. - Suggest expectorant cough syrup when necessary - No further antibiotics # SIRS. Heart rate on admission 128, Leukocytosis 13.4 left shift, acute. Patient not clinically septic. - Resolved # Subtherapeutic INR, acute. Present on admission. INR ranged 1.53-1.34. - Warfarin adjustment with 7.5 mg bolus 1. - Suggest follow-up soon regarding need for further outpatient warfarin adjustment # Chronic kidney disease. Congenital unilateral kidney, membranous glomerulonephropathy. Baseline serum creatinine 2-2.5. - No evidence of AK I. 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-steroids as noted above Giant cell arteritis-steroids as noted above Asbestosis status post right thoracostomy with talc treatment-we will continue Symbicort Osteoarthritis-Tylenol is available as needed Glaucoma of the left eye-we will continue Travatan eyedrops GERD-we will continue PPI Exam Vital Signs (Last) Date Time Temp Pulse Resp B/P Pulse Ox O2 Delivery O2 Flow Rate FiO2 01/16/17 08:14 36.3 79 20 159/93 95 Room Air 01/15/17 12:02 3.00 Exam General: Early healthy appearing elderly man talking at length with no acute distress HEENT: sclerae anicteric, oral mucosa moist Neck: no JVD Chest: Coarse inspiratory crackles bilaterally, no dullness, no egophony Cardiac: S1S2, regular, no murmur Abdomen: BS normal, non-tender Extremities: No edema Neuro: A&O, cranial nerves symmetric, motor strength 5/5, coordination normal Test 01/14/17 19:54 01/14/17 21:10 01/15/17 02:20 01/16/17 02:35 Total Bilirubin 0.4mg/dL (0.0-1.2) Aspartate Amino Transf (AST/SGOT) 15U/L (0-50) Alanine Aminotransferase (ALT/SGPT) 10U/L (0-44) Alkaline Phosphatase 63U/L (25-160) Troponin T 0.019ug/L (0.0-0.011) Pro-B-Type Natriuretic Peptide 1298pg/mL (0-486) Total Protein 6.8g/dL (6.4-8.4) Albumin 3.6g/dL (3.4-5.0) Urine Color Yellow (YELLOW) Urine Appearance Clear (CLEAR,HAZY) Urine pH 6.0 (5.0-8.0) Urine Specific [place] 1.025 (1.003-1.035) Urine Protein 300mg/dL (NEG,TRACE) Urine Glucose (UA) 250mg/dL (NEGATIVE) Urine Ketones Negativemg/dL (NEGATIVE) Urine Occult Blood Moderate (NEGATIVE) Urine Nitrite Negative (NEGATIVE) Urine Bilirubin Negative (NEGATIVE) Urine Urobilinogen Normalmg/dL (NORMAL) Urine Leukocyte Esterase Negative (NEGATIVE) Urine RBC 3-10/hpf (0-2) Urine WBC 0-5/hpf (0-5) Urine Epithelial Cells None/hpf (NONE-MOD) Urine Crystals None seen (NONE SEEN) Urine Bacteria Few/hpf (NONE-FEW) Urine Hyaline Casts None/lpf (NONE) Urine Granular Casts None seen (NONE SEEN) Urine Waxy Casts None seen (NONE SEEN) Urine Red Blood Cell Casts None seen (NONE SEEN) Urine White Blood Cell Casts None seen (NONE SEEN) Urine Mucus None seen (None Seen) Urine Trichomonas None seen (NONE SEEN) Urine Yeast None (NONE SEEN) Urinalysis Comment None Urine Culture Reflexed Not indicated Urine Legionella pneumophilia Ag Negative (Negative) Neutrophils (%) (Auto) 95.8% (40-74) Lymphocytes (%) (Auto) 2.3% (14-46) Monocytes (%) (Auto) 1.5% (4-12) Eosinophils (%) (Auto) 0% (0-5) Basophils (%) (Auto) 0.2% (0-3) Magnesium Level 2.1mg/dL (1.6-2.6) White Blood Count 20.2th/mm3 (3.8-10.1) Red Blood Count 3.87mil/mm3 (4.40-5.80) Hemoglobin 11.5g/dL (13.8-17.2) Hematocrit 37.4% (41.0-50.0) Mean Corpuscular Volume 96.6fL (81-100) Mean Corpuscular Hemoglobin 29.7pg (27.0-35.0) Mean Corpuscular Hemoglobin Concent 30.7% (32.0-37.0) Red Cell Distribution Width 14.9% (12.3-15.4) Platelet Count 307bil/L (150-400) Prothrombin Time 14.4sec (8.1-12.5) Prothromb Time International Ratio 1.34ratio Sodium Level 142mEq/L (134-144) Potassium Level 4.7mEq/L (3.5-5.2) Chloride Level 107mEq/L (97-108) Carbon Dioxide Level 19mmol/L (18-29) Blood Urea Nitrogen 40mg/dL (8-27) Creatinine 2.42mg/dL (0.76-1.27) Estimat Glomerular Filtration Rate 27mL/min (>59) Glucose Level 114mg/dL (60-99) Calcium Level 9.1mg/dL (8.5-10.1) Procalcitonin 0.39ng/mL (0.00-0.08) Test 01/16/17 10:50 Lactic Acid Level 2.8mmol/L (0.4-2.0) Microbiology Results Blood cultures this admission are pending. Review of micro-history is unremarkable. Discharge Medications Discharge Medications Budesonide/Formoterol 160-4.5 mcg Inh (Symbicort 160-4.5 mcg Inh) 120 Puff Inhaler 2 PUFF INHALATION BID (Reported) Cholecalciferol (Vitamin D3) (Vitamin D3) 5,000 Unit Tablet 5,000 UNIT PO DAILY (Reported) Furosemide (Furosemide) 20 Mg Tab 20 MG PO BIDWM (Reported) Metoprolol Tartrate (Metoprolol Tartrate) 50 Mg Tablet 50 MG PO BID (Reported) Pantoprazole DR (Protonix) 40 Mg Tablet.dr 40 MG PO QAM (Reported) PredniSONE (PredniSONE) 1 Mg Tab 5 MG PO DAILYWM (Reported) Timolol Maleate/Pf (Timoptic 0.5% Ocudose Drop) 1 Each Droperette 1 EACH AFFECT_ EYE QAM (Reported) Travoprost (Travatan Z) 5 Ml Drops 1 DROP BOTH_EYES HS (Reported) Warfarin Sodium (Warfarin Sodium) 5 Mg Tablet 5 MG PO DIRECTED (Reported) 2.5 mg on (1/2 tablet), 5 mg all other days As needed Acetaminophen (Acetaminophen) 325 Mg Tablet 650 MG PO Q4H PRN PRN For Fever ( Reported) Additional med instructions No medications have been changed on this admission. We suggest that you try an expectorant cough syrup (such as Robitussin AC with guaifenesin) to loosen secretions. This is available [id number]. You do not need antibiotics as there is no sign of pneumonia. Followup Plan Disposition: Home Follow-up plan Contact Dr. Stanton for a post-hospitalization follow-up appointment, including a check of your INR which was low (1.5) and may require adjustment of your warfarin. Discharge Diet: No restrictions Discharge Activity: No restrictions Patient Instructions Your low oxygen level was either due to bronchitis or possibly plugging of mucus. If you have further episodes of shortness of breath or low oxygen level you should return to the emergency department for evaluation. Follow-up Provider: Nuno Stanton MD Follow-up with PCP in: 1 week Time spent 35 minutes copies to: Nuno Stanton MD, Jeffrey W MD Jan 16, 2017 12:12
[2017-01-17] MEDS ORDERED: predniSONE 10 mg Tablet PO SCH (08:00)
[2017-01-17] MEDS ORDERED: predniSONE 20 mg Tablet PO SCH (08:30)
== END 2017-01-16 14:07 | disposition home or self-care (01) | DRG 202 ==
LOC: SED 19:28 → PCC 21:23
PROVIDERS: ADMIT Hospitalist; ATTEND Hospitalist
DX: J40 Bronchitis, not specified as acute or chronic (principal); E87.2 Acidosis; I12.0 Hypertensive chronic kidney disease with stage 5 chronic kidney disease or end stage renal disease; N18.5 Chronic kidney disease, stage 5; J61 Pneumoconiosis due to asbestos and other mineral fibers; M31.6 Other giant cell arteritis; E78.5 Hyperlipidemia, unspecified; I25.10 Atherosclerotic heart disease of native coronary artery without angina pectoris; Z77.090 Contact with and (suspected) exposure to asbestos; I48.0 Paroxysmal atrial fibrillation; K21.9 Gastro-esophageal reflux disease without esophagitis; H40.9 Unspecified glaucoma; Z66 Do not resuscitate; Z79.01 Long term (current) use of anticoagulants; Z85.118 Personal history of other malignant neoplasm of bronchus and lung; Z87.891 Personal history of nicotine dependence; Z79.51 Long term (current) use of inhaled steroids; Z90.5 Acquired absence of kidney